=== PATIENT | female | born 2000 | race Caucasian/White ===

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

== ENCOUNTER 2020-12-28 16:05 | Emergency (ER) | payer BC, SELFPAY ==
[2020-12-28 16:05] VITALS: BP 118/59; PULSE 117; RESP 16; TEMP 36.1; O2SAT 97; BMI 34.8
--- NOTE | 2020-12-28 16:24 | CT_ITS ---
HISTORY: NAUSEA X 1 WEEK, RLQ PAIN, HX GASTRIC SLEEVE, ELEVATED WBC COMPARISON: None. TECHNIQUE: Helical CT axial images from the lung bases to the pubic symphysis with 100 mL Isovue-370 intravenous contrast. Multiplanar reconstruction. Oral contrast was administered. A radiation dose optimization technique was used for this scan. # of images incl. paperwork: [id number] FINDINGS: LUNG BASES: No basilar consolidation or effusions. LIVER: Normal in size and homogenous attenuation. Segment 4A bilobed partially septated well-circumscribed hypodense lesion likely representing cyst measuring up to 2.5 cm. No other focal hepatic lesions. HEPATOBILIARY: Normal-appearing gallbladder. No intra- or extrahepatic ductal dilatation. SPLEEN: Normal size. PANCREAS: Normal size and contour. No focal mass. ADRENAL GLANDS: Normal size. No adrenal masses. KIDNEYS: Right ureterovesical junction 2 x 2 mm calculus with mild right hydroureter and mild right hydronephrosis. There is delayed right nephrogram when compared to contralateral side. No additional right-sided calculi. No left nephrolithiasis or hydronephrosis. No significant cysts are present. BOWEL AND MESENTERY: Status post gastric sleeve surgery. No small or large bowel dilatation. No colonic diverticulosis. The appendix is not visualized, no secondary signs of appendicitis. No abnormal mesenteric lymphadenopathy. No free fluid or pneumoperitoneum. RETROPERITONEUM:Normal caliber abdominal aorta without aneurysm. No abnormal retroperitoneal lymphadenopathy. PELVIS:Urinary bladder is suboptimally distended. Uterus and adnexal structures are unremarkable. ABDOMINAL WALL: The abdominal wall is intact. BONES: No suspicious osseous lytic or blastic lesions seen. CT/Abdomen/Pelvis WITH Contrast IMPRESSION: 1. Right ureterovesical junction 2 x 2 mm calculus with mild right hydronephrosis. 2. No additional right nephrolithiasis. No left nephrolithiasis or obstructive uropathy. 3. Segment 4A bilobed mildly septated 2.5 cm hepatic cyst. Confirmation with ultrasound is recommended. 4. Status post gastric sleeve surgery. Individualized dose optimization techniques were used for this CT. at 1937 Reported and signed by: Raleigh Ventura MD Electronically Signed: Raleigh Ventura MD at 19:35 EST Tel , Service support ,
--- NOTE | 2020-12-28 16:25 | ED.DCSUM_ITS ---
- ER Visit Summary Date of Service: 12/28/20 Chief Complaint: Abdominal pain History of Present Illness: The patient is a 20 F who is a [employer] student who lives in [place]. She reports that she has right lower quadrant abdominal pain that began yesterday. Is a cramping pain is 9-10 at worst and a 10 currently. Is worsened by movement relieved by remaining still. Patient reports she has had nausea for the past week and has vomited twice. No blood in her emesis. She does complain of a poor appetite. Patient denies diarrhea. Her last bowel was today. No melena or hematochezia. She has frequent urination and began yesterday. No dysuria. Physical Examination: Vitals: Stable. Afebrile. General: Well-nourished and well-developed. Head: Normocephalic atraumatic. Neck: Supple, no lymphadenopathy. No JVD. Nontender. Cardiovascular: Tachycardic regular rhythm. No murmurs. Respiratory: No respiratory distress. Clear to auscultation bilaterally. Abdominal: Soft, moderate tenderness palpation the right lower quadrant, nondistended, normal bowel sounds. No guarding, rebound, or peritoneal signs. Back: Nontender. Extremities: Nontender, no edema. Skin: Normal color, no rash. Neurologic: Alert and oriented ?3. Cranial nerves II through XII are intact. Normal strength and sensation. Psych: Normal affect. Test Results: CBC shows a white count of 11.3. Chem-7 shows a potassium of 3.2. Covid is negative. test is negative. Urinalysis shows no evidence of infection. Clinical Impression(s) from Imaging Studies Abdomen/Pelvis CT 12/28/20 16:24 IMPRESSION: 1. Right ureterovesical junction 2 x 2 mm calculus with mild right hydronephrosis. 2. No additional right nephrolithiasis. No left nephrolithiasis or obstructive uropathy. 3. Segment 4A bilobed mildly septated 2.5 cm hepatic cyst. Confirmation with ultrasound is recommended. 4. Status post gastric sleeve surgery. Individualized dose optimization techniques were used for this CT. at 1937 Reported and signed by: Raleigh Ventura MD Electronically Signed: Raleigh Ventura MD at 19:35 EST Tel , Service support , Emergency Department Course and Treatment: Patient had an IV placed. She was given a liter normal saline and Zofran IV. She refused pain medications. She is resting comfortably. Treatment Plan: Patient can only take Tylenol for pain. She will be discharged with Zofran as well. Instructed to follow-up with Dr. Esquivel in 3 to 5 days for another exam. I did discuss with her the hypodense lesion on her liver and suggested that she have an outpatient ultrasound to further evaluate this. Return to the emergency department for any worsening symptoms. Disposition: To home in improved and stable condition. Impression: 1 1. Right ureterolithiasis. 2. Hypodense liver lesion, 2.5 cm. This note was generated with [employer] dictation software. It may contain incorrect words, spelling, and punctuation that were not noted in review of the chart prior to signing ED Disposition - Plan for ED Patient: Instructions: ED Kidney Stone w/ Colic Prescriptions: Acetaminophen/Codeine #3 [Tylenol#3] 1 tab PO Q4H PRN PRN #20 tab PRN Reason: Pain Score 6-10 Prescription Printed Ondansetron [Zofran Odt] 4 mg PO Q8H PRN PRN #10 tab PRN Reason: Nausea Prescription Printed Referrals: Jonathan Esquivel MD [STAFF PHYSICIAN] - 3-5 Days
[2020-12-28] MEDS: 0.9% Normal Saline 1,000 ML 1000 ML IV (16:47)
[2020-12-28] MEDS: Ondansetron 4 MG/2 ML Vial IV (16:48)
[2020-12-28 17:07] LABS: Absolute Lymphocyte Count 2.77 X10^3/uL (0.83-4.51); Absolute Neutrophil Count 7.4 X10^3/uL (2.0-7.7); Basophil# 0.04 X10^3/uL; Basophil% 0.4 % (0-1); Eosinophil# 0.08 X10^3/uL; Eosinophils% 0.7 % (0-5); Hematocrit 44.6 % (37-47); Hemoglobin 14.6 g/dL (12.0-15.0); Lymphocyte # 2.77 X10^3/ul (4.0); Lymphocyte % 24.5 % (19-41); Mean Corp Hgb Conc 32.7 g/dL (32-36); Mean Corpuscular Hgb 30.9 pg (27.0-32.0); Mean Corpuscular Volume 94.5 fL (81-99); Mean Platelet Vol. 13.4 fl (6.2-12.0); Monocyte# 0.99 X10^3/uL; Monocyte% 8.8 % (0-10); NRBC Flagged by Analyzer 0 % (0-5); Neutrophil # 7.38 X10^3/uL (2.7-7.7); Neutrophil % 65.2 % (47-70); Platelet Count 185 K/mm3 (150-450); RBC Distribution Width CV 13.7 % (11.6-14.6); RBC Distribution Width SD 47.5 fl (35.1-43.9); Red Blood Count 4.72 M/mm3 (4.2-5.4); White Blood Count 11.3 K/mm3 (4.4-11.0)
[2020-12-28 17:11] LABS: Anion Gap 13 (5-15); BUN 9 mg/dL (7-18); BUN/Creat Ratio 9.9 RATIO (10-20); Calcium,Total 9.8 mg/dL (8.5-10.1); Chloride 104 mmol/L (98-107); Creatinine, Serum 0.91 mg/dL (0.55-1.02); EST Glomerular Filtration Rate 84 mL/min (>60); Est Glom Filt Rate - Afr Amer 101 mL/min (>60); Estimated Creatinine Clearance 88.74 ml/min; Glucose 91 mg/dL (74-106); Potassium 3.2 mmol/L (3.5-5.1); Sodium Level 139 mmol/L (136-145)
[2020-12-28 17:47] LABS: Internal QC Validated? YES +Cl - CLEAR BKGD; Pregnancy, Serum, hCG Quali. NEGATIVE Negative
[2020-12-28 19:43] LABS: Mucous, Urine 0 SEEN /hpf (<or=2+)
[2020-12-28 19:45] LABS: Color, Urine Yellow (Yellow); Glucose, Dipstick Normal (Normal); Leukocyte Esterase-Dipstick 25 /ul (Negative); Nitrite-Dipstick Negative (Negative); Occult Blood-Urine 10 /ul (Negative); Protein-Dipstick 15 mg/dl (Negative); Specific Gravity, Urine 1.025 (1.002-1.030); Urine Bilirubin Dipstick Negative (Negative); Urine Clarity Sl. Cloudy (Clear); Urine Urobilinogen 1 mg/dl (Normal)
[2020-12-28 19:50] LABS: Ketone-Dipstick 150 mg/dl (Negative)
[2020-12-28 19:54] VITALS: BP 134/83; PULSE 93; RESP 18; O2SAT 100
[2020-12-28 19:54] LABS: Bacteria RARE /hpf (None Seen); Red Blood Cells-Urine 0-5 SEEN /hpf (0-5); Squamous Epithelial Cells - UA 0-5 SEEN /hpf (5-10); White Blood Cells 0-5 SEEN /hpf (0-5)
[2020-12-28 20:15] VITALS: BP 123/61; PULSE 88; RESP 18; O2SAT 99
== END 2020-12-28 20:16 | disposition home or self-care (01) ==
LOC: ED 16:57
PROVIDERS: Emergency Provider Emergency Medicine
DX: N13.2 Hydronephrosis with renal and ureteral calculous obstruction (principal); K76.89 Other specified diseases of liver; Z79.899 Other long term (current) drug therapy; Z98.84 Bariatric surgery status
CPT/HCPCS: 74177; 80048; 81001; 84703; 85025; 87426; 96361; 96374; 99283; J7030; Q9967; A4216; J2405

== ENCOUNTER 2021-01-22 16:18 | Emergency (ER) | payer BC, SELFPAY ==
[2021-01-22 16:19] VITALS: BP 131/89; PULSE 109; RESP 14; TEMP 36.3; O2SAT 98; BMI 31.8
--- NOTE | 2021-01-22 17:26 | MRI_ITS ---
STUDY: MRI BRAIN WITH AND WITHOUT CONTRAST REASON FOR EXAM: Female, 20 years old. Weakness lower extremities and asymmetric sensory -- Evaluate for MS TECHNIQUE: Standardized multiplanar fat and water weighted pulse sequences were obtained. IV 17cc dotarem was administered for the contrast portion of the examination. COMPARISON: None. FINDINGS: Normal size of the ventricles and extra-axial spaces for the patient''s age. Normal white matter tracts of the supratentorial brain. Normal bilateral basal ganglia. Normal thalami. There is no extra-axial fluid accumulation. Normal flow voids within the major intracranial circulation suggesting patency by spin echo criteria. Normal venous enhancement. There is no enhancing intra-axial or extra-axial abnormality. Normal sella turcica, pituitary gland, infundibular stalk, optic chiasm and hypothalamus. Normal tectal plate and pineal gland. Normal midbrain, glynn and medulla. Normal cerebellum. Normal basal cisterns. Normal bilateral temporal bones. Normal bilateral internal auditory canals. No demonstrated orbital abnormality, within the constraints of a routine brain study. Normal visualized paranasal sinuses. Normal calvarium and skull base. Normal visualized soft tissue structures. Normal visualized upper cervical spine. MRI/Brain W/WO Contrast IMPRESSION: Normal brain. No white matter disease. Electronically Signed: Ji Casarez MD at 19:10 EST Tel , Service support ,
[2021-01-22 18:07] LABS: Absolute Lymphocyte Count 3.12 X10^3/uL (0.83-4.51); Absolute Neutrophil Count 4.2 X10^3/uL (2.0-7.7); Basophil# 0.05 X10^3/uL; Basophil% 0.6 % (0-1); Eosinophil# 0.11 X10^3/uL; Eosinophils% 1.3 % (0-5); Hematocrit 45.7 % (37-47); Hemoglobin 15.1 g/dL (12.0-15.0); Lymphocyte # 3.12 X10^3/ul (4.0); Mean Corpuscular Hgb 31.5 pg (27.0-32.0); Mean Corpuscular Volume 95.4 fL (81-99); Mean Platelet Vol. 12.3 fl (6.2-12.0); Monocyte# 0.67 X10^3/uL; Monocyte% 8.2 % (0-10); NRBC Flagged by Analyzer 0 % (0-5); Neutrophil # 4.24 X10^3/uL (2.7-7.7); Neutrophil % 51.5 % (47-70); Platelet Count 210 K/mm3 (150-450); RBC Distribution Width CV 13.6 % (11.6-14.6); RBC Distribution Width SD 47.9 fl (35.1-43.9); Red Blood Count 4.79 M/mm3 (4.2-5.4); White Blood Count 8.2 K/mm3 (4.4-11.0)
[2021-01-22 18:08] VITALS: RESP 17
--- NOTE | 2021-01-22 18:17 | ED.VIS.GEN ---
History of Present Illness Chief Complaint: Numb/Ting Informant: Patient Onset: Weeks Context: Sudden Onset Timing: Intermittent Quality: Weakness lower extremities and numbness Location: Inferior bra line Current Severity: Mild Maximum Severity: Moderate Worsened by: Nothing specific Relieved by: Nothing Associated Symptoms: Falls due to weakness lower extremity Narrative: Patient is a 20-year-old female with history of depression and anxiety, polycystic ovarian disease and GERD who presents with numbness inferior to her bra line with weakness in her lower extremities. She states she has fallen several times because her legs give out. There is no history of head trauma. There is no history of recent immunization. She denies fever or chills. She denies bowel or bladder dysfunction. She denies saddle paresthesia or anesthesia. She denies neck pain, upper or lower back pain. Prior similar symptoms: No Recent Illness/Hospitalization: No - Past Medical History (1) Depression with anxiety Status: Acute (2) Polycystic ovarian syndrome Status: Acute (3) History of gastroesophageal reflux (GERD) Status: Acute Past Medical History - Allergies and Home Meds Allergies/Adverse Reactions: Allergies NSAIDS (Non-Steroidal Anti-Inflamma Allergy (Verified 01/22/21 16:22) Swelling Pork/Porcine Containing Products Allergy (Verified 01/22/21 16:22) Swelling amoxicillin [From Augmentin] Adverse Reaction (Verified 01/22/21 16:22) Vomiting clavulanic acid [From Augmentin] Adverse Reaction (Verified 01/22/21 16:22) Vomiting Primary Care Physician: MARIANA STARK [Other] Prior records reviewed: Yes Surgical History: noncontributory Lives: Alone Smoking Status: Never smoker Alcohol: None Drugs: None Review of Systems General: Denies: Chills, Fever, Sweats Eyes: Denies: Visual changes - bilaterally, Blurred Vision - bilaterally, Diplopia ENT: Denies: Rhinorrhea, Sore throat Cardiovascular: Denies: Chest pain, Palpitations, Heart racing Respiratory: Denies: Dyspnea, Cough, Dyspnea on exertion Gastrointestinal: Denies: Abdominal pain, Nausea, Vomiting, Diarrhea, Melena, Hematochezia Genitourinary: Denies: Dysuria, Hematuria, Frequency Musculoskeletal: Denies: Myalgias, Arthralgias, Neck pain, Back pain, Swelling, Extremity Pain Skin: Denies: Rash, Wounds Neurological: Reports: Weakness, Parasthesia, Numbness. Denies: Headache Psych: Reports: Depression, Anxiety. Denies: Suicidal thoughts Endocrine: Denies: Polyuria, Polydipsia Hematologic: Denies: Easy bruising, Easy bleeding Physical Exam Vital Signs/Narrative: Vital Signs Temp Pulse Resp BP Pulse Ox 01/22/21 18:08 17 01/22/21 16:19 97.3 F L 109 H 14 131/89 H 98 Inital Vital Signs reviewed: Yes General: Well nourished, Well developed, Obese, No Acute Distress Head: Normocephalic, Atraumatic Eyes: Perrl, EOMI ENT: Moist mucous membranes, No rhinorrhea Neck: Supple, Nontender Cardiovascular: Regular rate, Regular rhythm, No murmurs Respiratory: No distress, CTA bilaterally, Chest nontender Abdomen: Soft, Nontender, Nondistended, Normal bowel sounds Back: Nontender, Normal Inspection Extremities: Nontender, No edema Skin: Normal color, No rash, Trauma - Wheezes noted right and left leg.. Negative for: Cyanosis, Diaphoresis, Jaundice Neurological: Alert, Oriented x3, Cranial nerves II-XII grossly intact, Normal Strength, Normal DTR - Biceps, brachialis, triceps, patella and ankle reflexes are 2+ and symmetric. There is no clonus or Babinski sign.. Negative for: Normal Sensation - He has asymmetric sensory deficit to pinprick. Symptoms are worse on the right. Psychological: Normal affect, Normal Mood Diagnostic/Tx/Re-eval Impressions Brain MRI 01/22/21 17:26 IMPRESSION: Normal brain. No white matter disease. Electronically Signed: Ji Casarez MD at 19:10 EST Tel , Service support , 01/22/21 17:26 MRI Brain [Brain W/WO Contrast] [MRI] Stat Laboratory Results 01/22/21 01/22/21 17:58 17:58 WBC 8.2 RBC 4.79 Hgb 15.1 H Hct 45.7 MCV 95.4 MCH 31.5 MCHC 33.0 RDW Std Deviation 47.9 H RDW Coeff of Vicky 13.6 Plt Count 210 MPV 12.3 H Immature Gran % (Auto) 0.400 Neut % (Auto) 51.5 Lymph % (Auto) 38.0 [place] % (Auto) 8.2 Eos % (Auto) 1.3 Baso % (Auto) 0.6 Absolute Neuts (auto) 4.2 Absolute Lymphs (auto) 3.12 Nucleated RBC % 0 Sodium 141 Potassium 3.8 Chloride 105 Carbon Dioxide 27.0 Anion Gap 9 BUN 7 Creatinine 0.61 Estim Creat Clear Calc 132.38 Est GFR (MDRD) Af Amer 160 Est GFR (MDRD) Non-Af 132 BUN/Creatinine Ratio 11.5 Glucose 86 Calcium 9.8 Total Bilirubin 0.60 AST 40 H ALT 61 H Alkaline Phosphatase 78 Total Protein 7.8 Albumin 4.2 Globulin 3.6 Albumin/Globulin Ratio 1.2 MRI is negative. Blood work is negative. Plan is to discharge to home and follow-up with PCP. - Medical Decision Making Electrolyte panel was obtained to assess for hypo or hypernatremia as well as hypokalemia. MRI was ordered to evaluate for possibility of MS or demyelinating disease. ED Disposition - Plan for ED Patient: Disposition: Home or Assisted Living Diagnosis: Paresthesia of both lower extremities Instructions: ED Paraesthesias Referrals: MARIANA STARK [Other] - 3-5 Days
[2021-01-22] MEDS: Ondansetron 4 MG/2 ML Vial IV (18:22)
[2021-01-22 18:23] LABS: ALB/GLOB Ratio 1.2 RATIO (0.9-2.4); AST(SGOT) 40 U/L (15-37); Alanine Aminotransfer ALT/SGPT 61 U/L (13-56); Albumin, Serum 4.2 g/dL (3.2-5.0); Alkaline Phosphatase 78 U/L (45-117); Anion Gap 9 (5-15); BUN 7 mg/dL (7-18); BUN/Creat Ratio 11.5 RATIO (10-20); Calcium,Total 9.8 mg/dL (8.5-10.1); Chloride 105 mmol/L (98-107); Creatinine, Serum 0.61 mg/dL (0.55-1.02); EST Glomerular Filtration Rate 132 mL/min (>60); Est Glom Filt Rate - Afr Amer 160 mL/min (>60); Estimated Creatinine Clearance 132.38 ml/min; Globulin 3.6 g/dL (2.2-4.2); Glucose 86 mg/dL (74-106); Potassium 3.8 mmol/L (3.5-5.1); Protein, Total 7.8 g/dL (6.4-8.2); Sodium Level 141 mmol/L (136-145)
[2021-01-22 19:22] VITALS: BP 110/69; PULSE 63; RESP 15; O2SAT 99
== END 2021-01-22 19:33 | disposition home or self-care (01) ==
PROVIDERS: Emergency Provider Emergency Medicine
DX: R20.2 Paresthesia of skin (principal); R53.1 Weakness; E28.2 Polycystic ovarian syndrome; K21.9 Gastro-esophageal reflux disease without esophagitis; F32.9 Major depressive disorder, single episode, unspecified; F41.9 Anxiety disorder, unspecified; E66.9 Obesity, unspecified; Z79.899 Other long term (current) drug therapy
CPT/HCPCS: 70553; 80053; 85025; 96374; 99283; A9575; A4216; J2405

== ENCOUNTER 2021-08-31 08:59 | Emergency (ER) | payer BC, SELFPAY ==
[2021-08-31 09:01] VITALS: BP 116/83; PULSE 93; RESP 17; TEMP 35.8; O2SAT 99; BMI 29.1
--- NOTE | 2021-08-31 09:44 | EDS_ITS ---
HPI History of Present Illness Chief Complaint: Suicidal Narrative Narrative: Patient presents with mental health concerns. Initially she would not talk to me she would try to text everything on her phone but eventually she opened up, she tells me she is quite anxious, she has compulsions to scratch herself to pull her eyebrows and hair out and she can control herself but she cannot function in any other way. She has thought about hurting herself, however she would not commit to if she is suicidal or if she wants to . She admits to being depressed she is on Prozac for this and has not taken any other medications. She does not feel afraid of anyone or has any hallucinations. PFSH PFSH Home Medications fluoxetine 20 mg PO DAILY 08/05/18 [History Last Taken 08/04/18] linagliptin-metformin [Jentadueto 2.5 mg-500 mg Tab] 1 ea PO DAILY 08/05/18 [History Last Taken 08/04/18] acetaminophen-codeine 1 tab PO Q4H PRN PRN #20 tab 12/28/20 [Rx Last Taken Unknown] ondansetron 4 mg PO Q8H PRN PRN #10 tab 12/28/20 [Rx Last Taken Unknown] Allergy/AdvReac Type Severity Reaction Status Date / Time NSAIDS (Non-Steroidal Allergy Swelling Verified 01/22/21 16:22 Anti-Inflamma Pork/Porcine Containing Allergy Swelling Verified 01/22/21 16:22 Products amoxicillin [From Augmentin] AdvReac Vomiting Verified 01/22/21 16:22 clavulanic acid AdvReac Vomiting Verified 01/22/21 16:22 [From Augmentin] Opioids - Morphine Analogues AdvReac NEEDS Verified 08/31/21 09:00 FOLLOW-UP Social History Smoking Status: Never smoker ROS ROS ED ROS Narrative Past medical history: Reviewed, includes polycystic ovarian disease and depression Medications: Reviewed Social history: She just got a new job, otherwise as in HPI Review of systems: All systems negative except as indicated, I did take quite a bit of time to get most of the review of systems but once I obtain them I do believe these are relatively accurate. General: No fever Eyes: No visual changes ENT: No upper airway congestion, normal voice Neck: No neck pain Cardiovascular: No chest pain Respiratory: No shortness of breath or cough Gastrointestinal: No abdominal pain, nausea vomiting or diarrhea Genitourinary: No dysuria. She denies , she is on control and uses condoms. Musculoskeletal: Denies myalgias no difficulty with ambulation Skin: Chronic facial acne Neurological: No memory loss, confusion or any focal weakness Psych: As in HPI EXAM Physical Exam Narrative Exam Narrative: Physical exam General: Patient appears quite anxious. She will not make eye contact. Head: Normocephalic, Atraumatic Eyes: Conjunctiva not pale ENT: Moist mucous membranes. Facial acne no obvious infection Neck: Supple, Nontender, No lymphadenopathy Cardiovascular: Regular rate, Regular rhythm Respiratory: No distress, CTA bilaterally Abdomen: Soft, Nontender, Nondistended Back: Nontender, Normal Inspection. Negative for: CVA tenderness Extremities: Nontender, No edema Skin: Normal color, No rash Neurological: Alert, Normal Strength, Normal Sensation Psychological: Anxious, she avoids eye contact, she answers appropriately when she does answer, she will not commit to whether she is suicidal or not. Const Vital Signs: 08/31/21 09:01 Temperature 96.4 F L Temperature Source Temporal Pulse Rate 93 Respiratory Rate 17 Blood Pressure 116/83 H Blood Pressure Mean 94 Pulse Ox 99 Oxygen Delivery Method Room Air MDM MDM MDM Narrative Medical decision making narrative: Patient also told the nurse that she has been researching online ways to hurt herself and kill herself. Because of this she will need admission. She is medically cleared for psychiatric evaluation. Lab Data Labs: Laboratory Results - last 24 hr 08/31/21 08/31/21 08/31/21 10:05 10:25 10:25 WBC 6.8 RBC 3.87 L Hgb 12.2 Hct 36.9 L MCV 95.3 MCH 31.5 MCHC 33.1 RDW Std Deviation 42.5 RDW Coeff of Vicky 12.1 Plt Count 244 MPV 10.3 Immature Gran % (Auto) 0.100 Neut % (Auto) 54.6 Lymph % (Auto) 39.0 Sandoval % (Auto) 5.1 Eos % (Auto) 0.6 Baso % (Auto) 0.6 Absolute Neuts (auto) 3.7 Absolute Lymphs (auto) 2.65 Nucleated RBC % 0 Sodium 141 Potassium 4.2 Chloride 105 Carbon Dioxide 27.0 Anion Gap 9 BUN 9 Creatinine 0.68 Estim Creat Clear Calc 118.75 Est GFR (MDRD) Af Amer 141 Est GFR (MDRD) Non-Af 116 BUN/Creatinine Ratio 13.2 Glucose 83 Calcium 9.2 Serum , Qual Urine Opiates Screen NEGATIVE Urine Methadone Screen NEGATIVE Ur Barbiturates Screen NEGATIVE Ur Phencyclidine Scrn NEGATIVE Ur Amphetamines Screen NEGATIVE U Methamphetamin-MDMA NEGATIVE U Benzodiazepines Scrn NEGATIVE Urine Cocaine Screen NEGATIVE U Cannabinoids Screen NEGATIVE Ur Drug Screen Comment Ethyl Alcohol 08/31/21 08/31/21 10:25 10:25 WBC RBC Hgb Hct MCV MCH MCHC RDW Std Deviation RDW Coeff of Vicky Plt Count MPV Immature Gran % (Auto) Neut % (Auto) Lymph % (Auto) Sandoval % (Auto) Eos % (Auto) Baso % (Auto) Absolute Neuts (auto) Absolute Lymphs (auto) Nucleated RBC % Sodium Potassium Chloride Carbon Dioxide Anion Gap BUN Creatinine Estim Creat Clear Calc Est GFR (MDRD) Af Amer Est GFR (MDRD) Non-Af BUN/Creatinine Ratio Glucose Calcium Serum , Qual NEGATIVE Urine Opiates Screen Urine Methadone Screen Ur Barbiturates Screen Ur Phencyclidine Scrn Ur Amphetamines Screen U Methamphetamin-MDMA U Benzodiazepines Scrn Urine Cocaine Screen U Cannabinoids Screen Ur Drug Screen Comment Ethyl Alcohol < 3.0 Discharge Plan Triage Chief Complaint: Suicidal ED Provider: Barak Cooper Dx/Rx/DC Orders Clinical Impression: Depression with anxiety, Suicidal ideations Prescriptions: No Action linagliptin-metformin [Jentadueto] 1 EACH tablet 1 ea PO DAILY RF: 0 fluoxetine 20 MG capsule 20 mg PO DAILY RF: 0 ondansetron 4 MG tablet 4 mg PO Q8H PRN PRN (Reason: Nausea) Qty: 10 RF: 0 acetaminophen-codeine 1 TABLET tablet 1 tab PO Q4H PRN PRN (Reason: Pain Score 6-10) Qty: 20 RF: 0 Primary Care Provider: [facility] Doctor,Out of Referrals: [facility] Doctor,Out of [Primary Care Provider] - Disposition Disposition: Transfer to Another Type [facility]
[2021-08-31] MEDS: LORazepam 1 MG Tablet PO ×2 (09:55→11:09)
[2021-08-31 10:30] LABS: Absolute Lymphocyte Count 2.65 X10^3/uL (0.83-4.51); Absolute Neutrophil Count 3.7 X10^3/uL (2.0-7.7); Basophil# 0.04 X10^3/uL; Basophil% 0.6 % (0-1); Eosinophil# 0.04 X10^3/uL; Eosinophils% 0.6 % (0-5); Hematocrit 36.9 % (37-47); Hemoglobin 12.2 g/dL (12.0-15.0); Lymphocyte # 2.65 X10^3/ul (0.83-4.51); Mean Corp Hgb Conc 33.1 g/dL (32-36); Mean Corpuscular Hgb 31.5 pg (27.0-32.0); Mean Corpuscular Volume 95.3 fL (81-99); Mean Platelet Vol. 10.3 fl (6.2-12.0); Monocyte# 0.35 X10^3/uL; Monocyte% 5.1 % (0-10); NRBC Flagged by Analyzer 0 % (0-5); Neutrophil # 3.71 X10^3/uL (2.7-7.7); Neutrophil % 54.6 % (47-70); Platelet Count 244 K/mm3 (150-450); RBC Distribution Width CV 12.1 % (11.6-14.6); RBC Distribution Width SD 42.5 fl (35.1-43.9); Red Blood Count 3.87 M/mm3 (4.2-5.4); White Blood Count 6.8 K/mm3 (4.4-11.0)
[2021-08-31 10:43] LABS: Anion Gap 9 (5-15); BUN 9 mg/dL (7-18); BUN/Creat Ratio 13.2 RATIO (10-20); Calcium,Total 9.2 mg/dL (8.5-10.1); Chloride 105 mmol/L (98-107); Creatinine, Serum 0.68 mg/dL (0.55-1.02); EST Glomerular Filtration Rate 116 mL/min (>60); Est Glom Filt Rate - Afr Amer 141 mL/min (>60); Estimated Creatinine Clearance 118.75 ml/min; Glucose 83 mg/dL (74-106); Potassium 4.2 mmol/L (3.5-5.1); Sodium Level 141 mmol/L (136-145)
[2021-08-31 10:45] LABS: Amphetamine Urine VISTA NEGATIVE (<1000 ng/mL); Barbiturate Urine VISTA NEGATIVE (< 200 ng/mL); Benzodiazepine Urine VISTA NEGATIVE (< 200 ng/mL); Cocaine Urine VISTA NEGATIVE (< 300 ng/mL); Ecstacy Urine VISTA NEGATIVE (< 500 ng/mL); Methadone Urine VISTA NEGATIVE (< 300 ng/mL); PCP Urine VISTA NEGATIVE (< 25 ng/mL); THC Urine VISTA NEGATIVE (< 50 ng/mL); Vista UDS pH Range 6
[2021-08-31 10:55] LABS: Internal QC Validated? YES +Cl - CLEAR BKGD; Pregnancy, Serum, hCG Quali. NEGATIVE Negative
[2021-08-31 10:57] LABS: Alcohol, Blood (Medical)-Serum < 3.0 mg/dL
--- NOTE | 2021-08-31 11:20 | CM.ED ---
SOCIAL WORK ASSESSMENT Referral Source: Reason for Consult: Mental Health Chief Compliant: SW met with patient in the ED room privately. SW asked patient what brought her to the ED and patient said, ?I can?t function anymore? and stated that she can?t do schoolwork. Patient said that when she gets done with schoolwork she comes home and has a ?breakdown?. Patient said that the last couple of days it has ?gotten worse?. Patient said that she texted her doctor last night and the doctor responded to her this morning and said to ?come to the ED? thus patient presented to the ED. Patient was tearful and anxious during the interview. Patient said that she has pulled her eyebrows out in the past, picked at her skin, cut at her ear, and pulled out her hair. This morning the RN noted patient picking at skin, pulling her hair, and pulling the back off her phone when she got anxious. Marital/Social History: Single. Patient said that she is in a serious relationship with her boyfriend, Polo, and the plan for them is to get engaged. Living Situation: Patient said that she is from [facility], dorming at the [employer] in [place] but lives off campus with her boyfriend. Support/Resources: Patient was asked about support and patient said, ?I don?t know... my mom and boyfriend but they both have stuff going on, so I try not to stress them out? when I talk about what is going on it scares people?. History: None Education and Employment History: Patient graduated HS and reports no ?officially? identified learning disabilities. 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 Patient reports that her grades are ?not that great? and in the past she ?managed to do good with help? regarding her grades. Patient said that she has a list of programs she wants to apply to after college but ?I haven?t made progress? on applying. Patient works at [employer] in [place]. She works 20 hours a week. Mental Health Treatment/History: Patient reports no psychiatrist and reports that her PCP prescribes her psychiatric meds. Patient is prescribed Prozac 40mg and reports med compliance. Patient reports no previous psych hospitalizations. Patient had gone to a counselor, Erika Thompson at [facility] in [place], but went one time and then was unable to return due to school, work and ?doctors? appointment?. Triggers/Stressors: Patient said a stressor is money ?but my parents said that they would support me, but I feel bad?. Patient said that she also feels bad as ?I am not caught up on schoolwork and I can?t do it... I am disappointing my teachers?. Coping Skills: Patient said that she feels she is not managing and is ?shutting down?. Patient said that often she feels like ?I can?t do it... I get on the phone or play video games?. Abuse and Neglect History: Denied Substance Abuse History: Patient reports drinking alcohol daily. Patient said that she drinks a ?double pour? of hard liquor daily. Patient reports she does not like to ?get drunk?. Patient said that she drinks alcohol from 5-9 pm. Risk to Self/Others: Suicidal- SW asked patient about suicidal ideation and patient said ?I don?t know... I am not sure when my thoughts become ideation. SW asked if patient had thoughts today of suicide or wanting to and she said yes and when asked if she had plan, she said ?yes... but it is hard to differentiate between thought, but I want to hit myself?. Patient said that she spends ?a lot of time thinking about how to end the situation?. Patient said that when she is having a breakdown, she pictures herself ?slitting my throat or taking a knife to my arm?. Patient reports that she has thoughts that it would be ?easier if she was ?. Patient also said that she has thoughts ?if I was be headed then my brain wouldn?t function like it does and I wouldn?t have to worry?. SW asked patient if she had researched methods of suicide and she said, ?I searched on how much medicine to OD on? and reports doing it 1 ? months ago. Patient said that she researched the amount of Tylenol she would need to take to OD. Homicidal: Denied Violence: Patient reports she picks at her skin, cuts at her ear, pulls her eyebrows and hair but ?not to the point that people notice?. Patient said that she also has thoughts about yanking at her fingernails and scratching at her palms. Mental Status Exam: Orientation: x4 Memory: Intact Appearance/General Behavior: Wearing hospital gown. Tearful and crying during the interview. Anxious. Reports feeling hopeless. Mood and Affect: Anxious mood and flat affect. Thought Process: Logical and Linear General Intellectual Functioning: Above Average Judgement: Fair Insight: Fair Assessment: Patient reports researching methods of overdose and reports that her ?breakdowns? are getting worse. Patient reports having thoughts about being ?be headed and then my brain wouldn?t function, and I wouldn?t have to worry?. Patient presents as very anxious during the interview. Thus, for patient ?safety she needs inpatient psych hospitalization for stabilization and medication review. Plan: Inpatient psych unit [facility]
--- NOTE | 2021-08-31 12:15 | ED.RN ---
PLAN TO PLACE PT PER [facility]. PT ADMITS TO [employer] FOR WAYS TO KILL SELF. PT COOPERATIVE WITH THIS RN. PT GIVEN STRESS BALL AND MEAL ORDERED
--- NOTE | 2021-08-31 12:40 | ED.RN ---
REFERRAL MADE TO [facility] PER CASE MANAGEMENT [facility]. PT COOPERATIVE. COVID SWAB OBTAINED. PT RESTING AT PRESENT TIME.
--- NOTE | 2021-08-31 12:49 | ED.RN ---
Pt. father at bedside.
--- NOTE | 2021-08-31 13:19 | ED.RN ---
PTS DAD IN ROOM. THIS RN INTRODUCED SELF ANSWERED QUESTIONS. [facility] AWARE
--- NOTE | 2021-08-31 14:17 | CM.ED ---
MIKE Note MIKE called Radha at [facility]. They have beds. MIKE faxed referral to them. Staff said that they accept [facility] but they are out of network. Staff at [facility] will review patient's insurance. MIKE received call from [facility]. Patient's insurance is not verifying. MIKE obtained verified insurance card and faxed it to [facility]. MIKE called [facility]. They take [facility] insurance. MIKE faxed referral including updated insurance to [facility]. Plan: Inpatient psych [facility]
--- NOTE | 2021-08-31 16:45 | CM.ED ---
MIKE Note SW received a phone call from Radha at [facility]. They can accept but they are out of network with deductible being $8000 and per day cost of50% as out of network providers. MIKE spoke to patient and her father. Father indicated to continue to look for placement. Randy from [facility] Called. Patient has been accepted and they are in network with patient's insurance. MIKE received call from Kerri at [facility].They can accept patient. She verified and patient's insurance is in network and they have met their $4000 deductible. SW met with patient and her father. They were given opportunity to review handouts on [facility] and looked on line at [facility]. Patient and her father voiced they want patient to go to [facility]. MIKE called Kerri at [facility]. The accepting MD is Juan A and patient is going to the [place] [facility]. RN to RN is [phone]. MIKE called [facility] and spoke to Jerrica and advised that patient is going to another facility. MIKE called [facility] and spoke to Brandi. Brandi was advised that family went to another psych hospitalization. MIKE spoke with patient and her father and updated them. Frieda called for transport. MIKE faxed the [place] to [facility]. Patient signed [facility] for [facility]. MIKE called [facility] and spoke to Yaritza in the [facility] and updated her that patient is going to [facility]. Yaritza appreciative of this update. MIKE remains available for patient until discharge. Plan: [facility]
[2021-08-31 16:55] VITALS: BP 99/45; PULSE 89; RESP 18; O2SAT 99
--- NOTE | 2021-08-31 18:46 | ED.RN ---
Nurse to nurse report called to Juli at [facility].
[2021-08-31 19:32] VITALS: RESP 16
[2021-08-31 21:06] VITALS: BP 98/58; PULSE 74; RESP 16; O2SAT 99
== END 2021-08-31 21:50 ==
PROVIDERS: Emergency Provider Emergency Medicine
DX: F32.A Depression, unspecified (principal); F41.9 Anxiety disorder, unspecified; R45.851 Suicidal ideations; Z79.899 Other long term (current) drug therapy
CPT/HCPCS: 80048; 80307; 82077; 84703; 85025; 87426; 99282